=== PATIENT | male | born 1985 | race Caucasian/White ===

== ENCOUNTER → 2019-10-01 10:57 | Outpatient (BNVA) | payer SELFPAY | PROVIDERS: Visit Provider Nurse Practitioner Family | DX: R50.9 Fever, unspecified (principal); J98.8 Other specified respiratory disorders | CPT/HCPCS: 87804 ==

== ENCOUNTER → 2019-11-09 12:48 | Outpatient (BNVA) | payer SELFPAY | PROVIDERS: PCP Nurse Practitioner Family; Visit Provider Family Medicine | DX: R05 Cough (principal); J06.9 Acute upper respiratory infection, unspecified; B97.89 Other viral agents as the cause of diseases classified elsewhere; J45.21 Mild intermittent asthma with (acute) exacerbation; R68.89 Other general symptoms and signs | CPT/HCPCS: 87804 ==

== ENCOUNTER → 2019-11-15 16:04 | Outpatient (BNVA) | payer SELFPAY | PROVIDERS: PCP Nurse Practitioner Family; Visit Provider Nurse Practitioner Family | DX: R05 Cough (principal); J98.8 Other specified respiratory disorders; J45.21 Mild intermittent asthma with (acute) exacerbation; R06.02 Shortness of breath | CPT/HCPCS: 71046; 85025 ==